=== PATIENT | female | born 1935 | race Caucasian/White ===

== ENCOUNTER 2017-10-28 17:07 | Outpatient (REF) | payer OTHER, SELFPAY ==
[2017-10-28 20:08] LABS: HCT 39.7 % (36.0-46.0); HGB 13.2 g/dL (12.0-15.5); Mean Corp. HGB Concentration 33.2 g/dL (32.0-36.0); Mean Corpuscular Hemoglobin 30.2 pg (27.0-33.0); Mean Corpuscular Volume 90.8 fL (80-95); Platelet Count 206 x1000/uL (130-400); RBC 4.37 m/cumm (4.00-5.20); RBC Distribution Width 14.1 % (11.7-14.6)
[2017-10-28 20:21] LABS: ALT 22 U/L (12-78); AST 15 U/L (15-37); Alkaline Phosphatase 60 U/L (46-116); Anion Gap 7.9 mmol/L (3-11); BUN 10 mg/dL (7-18); CO2 32.1 mmol/L (21.0-32.0); CREATININE 0.95 mg/dL (0.55-1.02); Calcium 9.1 mg/dL (8.5-10.1); Chloride 103 mmol/L (98-107); Estimated GFR 56.32 (mL/min/1.73m2); Glucose 104 mg/dL (70-100); Potassium 3.7 mmol/L (3.5-5.1); Sodium 143 mmol/L (136-145); TSH 1.47 uIU/mL (0.358-3.74); Total Protein 7.2 g/dL (6.4-8.2)
[2017-10-28 20:54] LABS: Bilirubin, Total 1.3 mg/dL (0.2-1.0)
== END 2017-10-28 17:08 ==
LOC: NCHCN 17:07
PROVIDERS: PCP Internal Medicine; Visit Provider Internal Medicine
DX: F41.9 Anxiety disorder, unspecified (principal); G56.01 Carpal tunnel syndrome, right upper limb
CPT/HCPCS: 80053; 85027; 84443

== ENCOUNTER 2018-02-13 10:35 | Outpatient (CLI) | payer OTHER, SELFPAY ==
--- NOTE | 2018-02-13 15:29 | DI.RAD_ITS ---
SYMPTOMS/DIAGNOSIS: PNEUMONIA, J18.9 PA AND LATERAL CHEST: No previous chest films available for comparison. There are multiple vascular clips in the right hilum with volume loss on the right, question prior lobectomy. Please correlate clinically. The heart is not enlarged and the lungs are grossly clear. No pleural effusion seen. CONCLUSION: No evidence of acute disease.
== END 2018-02-13 10:55 ==
PROVIDERS: PCP Internal Medicine; Visit Provider Nurse Practitioner Family
DX: J18.9 Pneumonia, unspecified organism (principal)
CPT/HCPCS: 71046

== ENCOUNTER 2018-08-10 19:27 | Outpatient (REF) | payer OTHER, SELFPAY ==
[2018-08-10 19:09] LABS: HCT 39.3 % (36.0-46.0); HGB 12.9 g/dL (12.0-15.5); Mean Corp. HGB Concentration 32.8 g/dL (32.0-36.0); Mean Corpuscular Hemoglobin 29.5 pg (27.0-33.0); Mean Corpuscular Volume 89.7 fL (80-95); Mean Platelet Volume 11.7 fL (8.0-11.0); Platelet Count 216 x1000/uL (130-400); RBC 4.38 m/cumm (4.00-5.20); RBC Distribution Width 14.9 % (11.7-14.6); White Blood Cell Count 5.12 k/cumm (4.4-10.8)
[2018-08-10 19:46] LABS: ALT 20 U/L (12-78); BUN 14 mg/dL (7-18); Calcium 9.6 mg/dL (8.5-10.1); Chloride 102 mmol/L (98-107); Estimated GFR 59.94 (mL/min/1.73m2); Glucose 97 mg/dL (70-100); Potassium 3.7 mmol/L (3.5-5.1); Sodium 141 mmol/L (136-145); TSH 1.73 uIU/mL (0.358-3.74)
[2018-08-10 20:01] LABS: LDL CHOLESTEROL 95 mg/dL (<100)
== END 2018-08-10 19:47 ==
LOC: NCHCN 19:27
PROVIDERS: PCP Internal Medicine; Visit Provider Internal Medicine
DX: R05 Cough (principal); I10 Essential (primary) hypertension; G30.9 Alzheimer's disease, unspecified
CPT/HCPCS: 80048; 83721; 85027; 84443; 84460

== ENCOUNTER 2019-08-13 15:35 | Outpatient (REF) | payer OTHER, SELFPAY ==
[2019-08-13 19:07] LABS: Abs Immature Grans 0.01 k/cumm (0.0-0.09); Absolute Basophil Count 0.05 k/cumm (0.0-0.2); Absolute Eosinophil Count 0.11 k/cumm (0.0-0.7); Absolute Lymphocyte Count 1.82 k/cumm (1.2-3.4); Absolute Monocyte Count 0.68 k/cumm (0.11-0.7); Basophils % 0.8; Eosinophils % 1.7; HCT 41.3 % (36.0-46.0); HGB 13.4 g/dL (12.0-15.5); Immature Grans % 0.2 %; Lymphocytes % 28.1; Mean Corp. HGB Concentration 32.4 g/dL (32.0-36.0); Mean Corpuscular Volume 89.4 fL (80-95); Mean Platelet Volume 11.8 fL (8.0-11.0); Monocytes % 10.5; Neutrophils % 58.7; Platelet Count 236 x1000/uL (130-400); RBC 4.62 m/cumm (4.00-5.20); RBC Distribution Width 14.3 % (11.7-14.6); White Blood Cell Count 6.47 k/cumm (4.4-10.8)
[2019-08-13 19:39] LABS: Anion Gap 5.7 mmol/L (3-11); BUN 15 mg/dL (7-18); CO2 33.3 mmol/L (21.0-32.0); CREATININE 0.96 mg/dL (0.55-1.02); Calcium 9.3 mg/dL (8.5-10.1); Chloride 102 mmol/L (98-107); Glucose 101 mg/dL (74-106); Potassium 3.6 mmol/L (3.5-5.1); Sodium 141 mmol/L (136-145); TSH 1.54 uIU/mL (0.36-3.74)
== END 2019-08-13 15:55 ==
LOC: NCHCN 15:35
PROVIDERS: PCP Internal Medicine; Visit Provider Internal Medicine
DX: R53.83 Other fatigue (principal); I10 Essential (primary) hypertension; F41.9 Anxiety disorder, unspecified; R63.4 Abnormal weight loss
CPT/HCPCS: 80048; 84443; 85025

== ENCOUNTER 2019-12-05 16:47 | Outpatient (REF) | payer OTHER, SELFPAY ==
[2019-12-05 23:11] LABS: Folate 16.6 ng/mL (8.6-20.0); Vitamin B12 346 pg/mL (193-986)
[2019-12-06 16:21] LABS: CREATININE 0.93 mg/dL (0.55-1.02); Estimated GFR 57.44 (mL/min/1.73m2)
[2019-12-10 10:10] LABS: Methylmalonic Acid 0.33 nmol/mL (<=0.40)
== END 2019-12-05 17:07 ==
LOC: NCHCN 16:47
PROVIDERS: PCP Internal Medicine; Visit Provider Internal Medicine
DX: G30.9 Alzheimer's disease, unspecified (principal); C34.11 Malignant neoplasm of upper lobe, right bronchus or lung; R05 Cough; H81.10 Benign paroxysmal vertigo, unspecified ear; Z51.81 Encounter for therapeutic drug level monitoring
CPT/HCPCS: 80186; 82565; 82607; 82746

== ENCOUNTER 2020-12-31 14:41 | Outpatient (REF) | payer OTHER, SELFPAY ==
[2020-12-31 21:32] LABS: HCT 37.1 % (36.0-46.0); HGB 11.9 g/dL (11.2-15.7); MCHC 32.1 % (32.0-36.0); MCV 90.3 fL (80-95); MPV 12.2 fL (8.0-11.0); Platelet Count 200 10^3/uL (130-400); RBC 4.11 10^6/uL (3.93-5.22); RDW 13.9 % (11.7-14.6); RDW-SD 45.8 fL; WBC 6.48 10^3/uL (4.4-10.8)
[2021-01-01 06:53] LABS: ALT 16 U/L (14-59); AST 18 U/L (15-37); Albumin 3.8 g/dL (3.4-5.0); Alkaline Phosphatase 53 U/L (46-116); Anion Gap 8.2 mmol/L (3-11); BUN 20 mg/dL (7-18); Bilirubin, Total 1.1 mg/dL (0.2-1.0); CO2 29.8 mmol/L (21.0-32.0); CREATININE 0.9 mg/dL (0.55-1.02); Calcium 9.6 mg/dL (8.5-10.1); Chloride 104 mmol/L (98-107); Estimated GFR 59.51 (mL/min/1.73m2); Glucose 89 mg/dL (74-106); Potassium 4.1 mmol/L (3.5-5.1); Sodium 142 mmol/L (136-145); TSH 1.42 uIU/mL (0.36-3.74)
== END 2020-12-31 14:42 | disposition home or self-care (01) ==
LOC: NCHCN 14:41
PROVIDERS: PCP Internal Medicine; Visit Provider Internal Medicine
DX: R63.4 Abnormal weight loss (principal); I10 Essential (primary) hypertension; M85.80 Other specified disorders of bone density and structure, unspecified site
CPT/HCPCS: 80053; 85027; 84443

== ENCOUNTER 2022-01-12 15:37 | Outpatient (REF) | payer OTHER, SELFPAY ==
[2022-01-12 20:03] LABS: Abs Immature Grans 0.02 10^3/uL (0.0-0.06); Absolute Basophil Count 0.06 10^3/uL (0.0-0.2); Absolute Eosinophil Count 0.14 10^3/uL (0.0-0.7); Absolute Lymphocyte Count 1.21 10^3/uL (1.2-3.4); Basophils % 0.9; Eosinophils % 2.2; HCT 38.8 % (36.0-46.0); HGB 12.8 g/dL (11.2-15.7); Immature Grans % 0.3; Lymphocytes % 19.1; MCH 29.2 pg (27.0-33.0); MCV 89 fL (80-95); MPV 12.2 fL (8.0-11.0); Monocytes % 9.5; Platelet Count 212 10^3/uL (130-400); RBC 4.38 10^6/uL (3.93-5.22); RDW-SD 45.3 fL; WBC 6.33 10^3/uL (4.4-10.8)
[2022-01-12 20:20] LABS: ALT 15 U/L (14-59); AST 18 U/L (15-37); Albumin 3.5 g/dL (3.4-5.0); Alkaline Phosphatase 57 U/L (46-116); Anion Gap 4.6 mmol/L (3-11); BUN 14 mg/dL (7-18); Bilirubin, Total 1.1 mg/dL (0.2-1.0); CO2 33.4 mmol/L (21.0-32.0); CREATININE 0.9 mg/dL (0.55-1.02); Calcium 9.8 mg/dL (8.5-10.1); Chloride 102 mmol/L (98-107); Estimated GFR 62.26 (mL/min/1.73m2); Glucose 88 mg/dL (74-106); Potassium 4.3 mmol/L (3.5-5.1); Sodium 140 mmol/L (136-145); Total Protein 7.5 g/dL (6.4-8.2)
== END 2022-01-12 15:38 | disposition home or self-care (01) ==
LOC: NCHCN 15:37
PROVIDERS: PCP Internal Medicine; Visit Provider Physician Assistant
DX: I10 Essential (primary) hypertension (principal); E78.5 Hyperlipidemia, unspecified
CPT/HCPCS: 80053; 85025

== ENCOUNTER 2024-02-08 17:25 | Outpatient (REF) | payer MEDICARE, SELFPAY ==
--- OUTSIDE RECORDS SUMMARY | 2024-02-08 17:26 | XMS_ITS | Encounter Summary ---
Author Organization [facility] Address [address] [place] [address] Care Team Providers Care Data Recovery Planner Name Role Phone Rivera Spain MD Primary Care Provider Encounter Details Date Type Department Care Team (Late st Contact Info) Description 12/16/[address] [facility] [phone] Dayna Ramirez MD [address] [place] [phone] Social History Tobacco Use Types Packs/Day Years Used Date Smoking Tobacco: Former Comments:quit 1974 Alcohol Use Standard Drinks/Week Comments No 0 (1 standard drink = 0.6 oz pur e alcohol) Comments Unknown Sex and Gender Information Value Date Recorded Sex Assigned at Not on file Legal Sex Female 18:46 EST Gender Identity Not on file Sexual Orientation Not on file documented as of this encounter Plan of Treatment Not on file documented as of this encounter Procedures Procedure Name Priority Date/Time Associated Diagnosis Comments CT GUIDE BIOPSY/ASPIR/INJECT 12/16/2008 12:01 EDT documented in this encounter Results * CT GUIDE BIOPSY/ASPIR/INJECT (12/16/2008 12:01 EDT) Anatomical Region Laterality Modality Other 12/16/2008 12:0 1 EDT 12/16/2008 14:22 EDT Narrative 12/16/2008 14:[address] GUIDE BIOPSY/ASPIR/INJECT ??Dec 16, 2008 12:01:00 PM Chest PA 12/16/2008 at 1:58 p.m. Signs and Symptoms/Comments: ??73 year old female with h/o 10 pack per year tobacco use, asbestos fiber exposure, now with right upper lobe lung mass, please biopsy. Technique: After a detailed explanation of the risks and benefits of the procedure as well as consideration of alternative diagnostic methods including no further diagnostic procedures, informed consent was obtained from the patient. A history and physical examination were performed for the purposes of administering conscious sedation, which was given during the procedure. The patient's blood pressure, respiratory rate, pulse, and oxygen saturations were continuously monitored during the procedure. With the patient in the supine position, a series of scans were obtained through the upper chest confirming the presence of a 2.5 cm in diameter nodule ??in the right upper lobe. ??An appropriate needle entry site was chosen by use of the CT gantry laser light. ??The skin was then prepared and draped in a sterile manner. After lidocaine had been administered both superficially and to the pleural surface, and a small skin incision had been made, a 19-gauge, 10 cm long ultrathin-walled needle was advanced through the anterior chest wall and placed with its tip within the superior aspect of the right upper lobe nodule. ??Multiple aspirates were then obtained with 22-gauge, 15 cm long Chiba needles and given to the cytopathologist for evaluation. ??A repeat scan obtained immediately after the biopsy showed that there was localized hemorrhage without obvious hemothorax or hemoptysis clinically. The patient was then placed in the right decubitus position and transferred to postprocedure recovery for monitoring. Impression: Successful CT-guided aspiration biopsy of a 2.5 cm in diameter nodule in the right upper lobe. Minimal perilesional hemorrhage cannot locate the procedure without clinical hemoptysis. Chest radiograph obtained 2 hours post procedure shows very small right apical pneumothorax. Localized hemorrhage is seen the site of biopsy. No other abnormalities are noted. Procedure Note 12/16/2008 CT GUIDE BIOPSY/ASPIR/INJECT Dec 16, 2008 12:01:00 PM Chest PA 12/16/2008 at 1:58 p.m. 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 Technique: After a detailed explanation of the risks and benefits of the procedure as well as consideration of alternative diagnostic methods including no further diagnostic procedures, informed consent was obtained from the patient. A history and physical examination were performed for the purposes of administering conscious sedation, which was given during the procedure. The patient's blood pressure, respiratory rate, pulse, and oxygen saturations were continuously monitored during the procedure. With the patient in the supine position, a series of scans were obtained through the upper chest confirming the presence of a 2.5 cm in diameter nodule in the right upper lobe. An appropriate needle entry site was chosen by use of the CT gantry laser light. The skin was then prepared and draped in a sterile manner. After lidocaine had been administered both superficially and to the pleural surface, and a small skin incision had been made, a 19-gauge, 10 cm long ultrathin-walled needle was advanced through the anterior chest wall and placed with its tip within the superior aspect of the right upper lobe nodule. Multiple aspirates were then obtained with 22-gauge, 15 cm long Chiba needles and given to the cytopathologist for evaluation. A repeat scan obtained immediately after the biopsy showed that there was localized hemorrhage without obvious hemothorax or hemoptysis clinically. The patient was then placed in the right decubitus position and transferred to postprocedure recovery for monitoring. Impression: Successful CT-guided aspiration biopsy of a 2.5 cm in diameter nodule in the right upper lobe. Minimal perilesional hemorrhage cannot locate the procedure without clinical hemoptysis. Chest radiograph obtained 2 hours post procedure shows very small right apical pneumothorax. Localized hemorrhage is seen the site of biopsy. No other abnormalities are noted. us Dayna Ramirez MD [facility] ORDERABLES Final R esult documented in this encounter Visit Diagnoses Not on filedocumented in this encounter Care Teams Data Recovery Planner Relationship Specialty Start Date End Date Rivera Spain MD [address] [place] [id number] PCP - General 12/12/08 documented as of this encounter
--- OUTSIDE RECORDS SUMMARY | 2024-02-08 17:26 | XMS_ITS | Encounter Summary ---
Author Organization [facility] Address [address] [place] [address] Care Team Providers Care Machine Builder Name Role Phone Rivera Spain MD Primary Care Provider [phone] Encounter Details Date Type Department Care Team (Late st Contact Info) Description 01/21/2021 Lab Requisition [facility] Pathology & Laboratory Medicine - [address] [address] Deloris Schwarz, ELBA [address] [place] [address] [place], [place] [id number] Neoplasm of uncertain behavior of skin Social History Tobacco Use Types Packs/Day Years [...] Procedure Name Priority Date/Time Associated Diagnosis Comments SURGICAL PATHOLOGY Today 01/21/2021 11 :58 EDT Neoplasm of uncertain behavior of skin documented in this encounter Results * SURGICAL PATHOLOGY (01/21/2021 11:58 EDT) Note to Patient The following pathology results have been interpreted by your pathologist and may be available to you before your health provider has had the opportunity to review them. Please allow time for your provider to receive these results and explore management options, if applicable. 01/22/2021 16:22 [facility] Final Diagnosis A. Skin of nasal sidewall, right, shave biopsy: - Squamous cell carcinoma, well differentiated, invasive. - Squamous cell carcinoma present at deep tissue edge. 01/22/2021 16:22 [facility] Attestation By the signature below, the attending physician certifies that they have 1) personally conducted a gross and/or microscopic examination of the described specimen(s), and/or personally interpreted the results of laboratory testing of the described specimen(s), and 2) personally rendered or confirmed the above diagnosis. 01/22/2021 16:22 [facility] at 1621 Microscopic Description The stratum corneum is thickened by orthohyperkeratosis and parakeratosis. Emanating from the epidermis and extending into the dermis is a proliferation of atypical squamous epithelium. The proliferation consists of variably sized, irregular islands associated with dermal desmoplasia. The cells have an increased nuclear-cytoplasmic ratio and nuclear pleomorphism. Intercellular bridge and keratin marek formation are evident. 01/22/2021 16:22 [facility] Clinical History 7 mm pink crusted papule with multiple telangiectasias; DDX: Basal cell carcinoma vs other; clinical diagnosis code: D48.5 01/22/2021 16:22 [facility] Gross Description A. Received in formalin labelled with proper patient identification (initials D, B) and right nasal sidewall is a shave biopsy of a pearly white, keratotic papule (0.7 x 0.5 x 0.2 cm). The specimen is inked, bisected and submitted in A1. ELBA BEAR(ASCP) 01/22/2021 7:40 01/22/2021 16:22 [facility] Performing Lab [facility] 01/22/2021 16:22 [facility] Scanned Images 01/22/2021 16:22 [facility] Tissue TISSUE SPECIMEN FROM SKIN / Unknown 01/21/2021 11:58 EDT 01/21/2021 23:32 EDT us Deloris [facility] ORDERABLES Final Re sult [facility] [address] [place] [address] documented in this encounter Visit Diagnoses Diagnosis Neoplasm of uncertain behavior of skin documented in this encounter Care Teams Machine Builder Relationship Specialty Start Date End Date Rivera Spain MD [address] [place] [id number] PCP - General 12/12/08 documented as of this encounter
--- OUTSIDE RECORDS SUMMARY | 2024-02-08 17:26 | XMS_ITS | Encounter Summary ---
Author Organization [facility] Address [address] [place] [address] Care Team Providers Care Paper Cone Machine Tender Name Role Phone Rivera Spain MD Primary Care Provider [phone] Encounter Details Date Type Department Care Team (Latest Contact Info) Description 12/23/2008 8:22 EDT - 12/23/2008 18:34 EDT Hospital Encounter [facility] [address] [place] [address] Dayna Ramirez MD [address] [place] [phone] Discharge Disposition: Home or Self Care Social History Tobacco Use Types Packs/Day Years [...] on file documented as of this encounter Last Filed Vital Signs Vital Sign Reading Time Taken Comments Blood Pressure 149/63 12/23/2008 1828 EDT Pulse 74 12/23/2008 1828 EDT Temperature 35.8 ??C (96.4 ??F) 12/23/2008 1703 EDT Respiratory Rate 16 12/23/2008 1610 EDT Oxygen Saturation 97% 12/23/2008 1828 EDT Inhaled Oxygen Concentration - - Weight 74.4 kg (164 lb) 12/20/2008 1530 EDT Height 170.2 cm (5' 7) 12/20/2008 1530 EDT Body Mass Index 25.69 12/20/2008 1530 EDT documented in this encounter Medications at Time of Discharge ATORVASTATIN CALCIUM (LIPITOR ORAL) Take 20 mg by mouth daily. bisoprolol-hydroc hlorothiazide (ZIAC) 10-6.25 mg per tablet Take 1 Tab by mouth. diazepam (VALIUM) 2 mg tablet Take 2 mg by mouth as needed for Anxiety. FLUTICASONE/SALME TEROL (ADVAIR DISKUS INHL) Inhale 2 Puffs as directed 2 times daily. documented as of this encounter Discharge Disposition Disposition Code Departure Means Destination Home or Self Care documented in this encounter Progress Notes * Lauren Cortez RN - 12/23/[address] Madsen here to assess pt. Ok pt for discharge, gave son Markos phone # to reach for emergency.-djp * Lauren Cortez RN - 12/23/2008 1759 EDT 1750 Radiology here to perform U/S.-djp * Lauren Cortez RN - 12/23/2008 1756 EDT 1725 Pt sitting up drinking coffee, pain assessment pt c/o chest pain that starts on right midline of right breast. After talking it through, pt is unsure if pain is from previous position during renal bx. Pt was lying on rolled up blanket placed at midline chest. -djp [address] Madsen to report chest pain, Dr Madsen to come see pt in PPR.-djp * Lauren Cortez RN - 12/23/2008 1730 EDT 1717 Pt drinking coffee, refused food. Verbally reviewed discharge instructions with pt and son, hard copy signed and given to pt.-djp * Seda Gama - 12/23/2008 1548 EDT Pt. From CVU With consents in place. Proper pt. Identification made. Labs, allergies, hx. And medications reviewed. Positioned on CT table and act english tutor scan done.Pt. prepped for procedure. Conscious sedation with Versed and Fentanyl given throughout procedure and VS monitored continually. Due to difficulty getting into renal lesion safely, procedure aborted. Pt. To [facility] for recovery. * Shari Macias RN - 12/23/2008 1331 EDT 1300 Pt arrived to CVU with a Peripheral IV in wrist and was placed by PET scan this am. Unable to document on this IV as is not in LDA documented in this encounter Procedure Notes * Jordan Madsen MD - 12/23/2008 1613 EDT Radiologist: Cale Procedure: Attempted CT guided left kidney tumor biopsy Diagnosis/Reason: Left kidney tumor Anesthesia: Moderate sedation Approach: Left flank Medications: IV versed and fentanyl, and local lidocaine Contrast: none Specimens: none Cultures: none Preliminary Findings: CT guided biopsy aborted, since lung and ribs prevented successful biopsy of tumor off of superior pole of left kidney, in the prone position. This occurred despite extreme superior angulation of the needle, using an inferior approach. In the setting of a moderate right pneumothorax, I elected to abort the procedure, since she is at high risk of sustaining a left pneumothorax with this procedure. Once the right pneumothorax resolves, we can reconsider performing a biopsy of the superior pole left kidney tumor, via a transthoracic approach. Complications: None EBL: None Recommendations: Per clinical team. documented in this encounter OR Notes * Anesthesia Procedure Notes - Inpatient, Physician - 12/26/2008 1535 EDT documented in this encounter Miscellaneous Notes * Scanned Note-Null - Inpatient, Physician - 12/26/2008 1535 EDT * Scanned Note-Null - Inpatient, Physician - 12/26/2008 1535 EDT documented in this encounter Plan of Treatment Not on file documented as of this encounter Visit Diagnoses Not on filedocumented in this encounter Administered Medications Inactive Administered Medications - up to 3 most recent administrations Medication Order MAR Action Action Date Dose Rate Site fentanyl citrate (PF) 50 mcg/mL injection 25-250 mcg 25-250 mcg, intravenous, ONCE PRN, 1 dose, Starting on Tue12/23/08 at 1451, Until Tue12/23/08 at 1620, Other, radiology, Routine, Intraprocedure Given 12/23/2008 16:20 EDT 50 mcg midazolam (VERSED) injection 0.5-10 mg 0.5-10 mg, intravenous, ONCE PRN, 1 dose, Starting on Tue12/23/08 at 1451, Until Tue12/23/08 at 1621, Sedation, Routine, Intraprocedure Given 12/23/2008 16:21 EDT 1.5 mg sodium chloride 0.9 % (NS) infusion 50 mL/hr, intravenous, CONTINUOUS, Starting on Tue12/23/08 at 1330, Until Tue12/23/08 at 2039, Routine, Preprocedure New Bag 12/23/2008 13:30 EDT 50 mL/hr 50 mL/hr documented in this encounter Active and Recently Administered Medications Times are shown in EDT. Continuous Medication Order 12/21/2008 12/22/2008 12/23/2008 sodium chloride 0.9 % (NS) infusion (CANCELED) 50 mL/hr, intravenous, CONTINUOUS, Starting on Tue12/23/08 at 1330, Until Tue12/23/08 at 2039, Routine, Preprocedure 1330 (New Bag - Prov ider: Shari Macias RN) PRN Medication Order 12/21/2008 12/22/2008 12/23/2008 fentanyl citrate (PF) 50 mcg/mL injection 25-250 mcg (COMPLETED) 25-250 mcg, intravenous, ONCE PRN, 1 dose, Starting on Tue12/23/08 at 1451, Until Tue12/23/08 at 1620, Other, radiology, Routine, Intraprocedure 1620 (Given - Provid er: Seda Gama) midazolam (VERSED) injection 0.5-10 mg (COMPLETED) 0.5-10 mg, intravenous, ONCE PRN, 1 dose, Starting on Tue12/23/08 at 1451, Until Tue12/23/08 at 1621, Sedation, Routine, Intraprocedure 1621 (Given - Provid er: Seda Gama) documented in this encounter Orders Diet Count Last Ordered Date First Orde red Date DIET NPO TIME SPECIFIED 12/23/2008 Nursing Count Last Ordered Date First Orde red Date NURSING COMMUNICATION 12/23/2008 Admission Count Last Ordered Date First Orde red Date NOTIFY PPS OF DISCHARGE COMPLETE 12/24/19 documented in this encounter Care Teams Paper Cone Machine Tender Relationship Specialty Start Date End Date Rivera Spain MD [address] [place] [address] PCP - General 12/12/08 documented as of this encounter
--- OUTSIDE RECORDS SUMMARY | 2024-02-08 17:26 | XMS_ITS | Encounter Summary ---
Author Organization [facility] Address [address] [place] [address] Care Team Providers Care Machine Clothing Worker Name Role Phone Rivera Spain MD Primary Care Provider [phone] Encounter Details Date Type Department Care Team (Late st Contact Info) Description 02/16/[address] [facility] Pathology & Laboratory Medicine - [address] [address] Deloris Schwarz, ELBA [address] [place] [address] [place], [place] [id number] Neoplasm of uncertain behavior of skin Social [...] Date/Time Associated Diagnosis Comments SURGICAL PATHOLOGY Today 02/15/2022 14 :22 EST Neoplasm of uncertain behavior of skin documented in this encounter Results * SURGICAL PATHOLOGY (02/15/2022 14:22 EST) Note to Patient The following pathology results have been interpreted by your pathologist and may be available to you before your health provider has had the opportunity to review them. Please allow time for your provider to receive these results and explore management options, if applicable. 02/16/2022 15:50 [facility] Final Diagnosis A. SKIN OF NASAL DORSUM, SHAVE BIOPSY: - Squamous cell carcinoma in situ, involving the biopsy base. 02/16/2022 15:50 [facility] Attestation By the signature below, the attending physician certifies that they have 1) personally conducted a gross and/or microscopic examination of the described specimen(s), and/or personally interpreted the results of laboratory testing of the described specimen(s), and 2) personally rendered or confirmed the above diagnosis. 02/16/2022 15:50 [facility] at 1550 Clinical History Erythematous tender papule with hyperkeratotic scale, DDx: squamous cell carcinoma versus HAK; clinical diagnosis code: D48.5 02/16/2022 15:50 [facility] Gross Description A. Received in formalin labelled with proper patient identification (initials D, B) and nasal dorsum is a shave biopsy of an irregular perales-white focally de la o-perales keratotic nodule (1.1 x 0.8 x 0.1 cm). The specimen is received with a moderate amount of purple marking ink on the cutaneous surface. The margin is subsequently inked blue, the specimen is trisected and entirely submitted in A1. JER AGUILAR 02/16/2022 7:53 02/16/2022 15:50 [facility] Performing Lab [facility] 02/16/2022 15:50 [facility] Scanned Images 02/16/2022 15:50 [facility] Tissue TISSUE SPECIMEN FROM SKIN / Unknown 02/15/2022 14:22 EST 02/16/2022 7:09 EST us Deloris [facility]OL[facility] PATHOLOGY ORDERABLES Final Re sult [facility] [address] [place] [address] documented in this encounter Visit Diagnoses Diagnosis Neoplasm of uncertain behavior of skin documented in this encounter Care Teams Machine Clothing Worker Relationship Specialty Start Date End Date Rivera Spain MD [address] [place] [address] PCP - General 12/12/08 documented as of this encounter
--- OUTSIDE RECORDS SUMMARY | 2024-02-08 17:26 | XMS_ITS | Encounter Summary ---
Author Organization [facility] Address [address] [place] [address] Care Team Providers Care Insert Molding Operator Name Role Phone Rivera Spain MD Primary Care Provider Encounter Details Date Type Department Care Team (Late st Contact Info) Description 12/23/2008 Orders Only [facility] [phone] Renata Villafana MD [address], [place] [id number] Social History Tobacco Use Types Packs/Day Years [...] Date/Time Associated Diagnosis Comments CT GUIDE BIOPSY/ASPIR/INJECT 12/23/2008 16:[address] EYE TO THIGH 12/23/2008 12:02 EDT documented in this encounter Results * CT GUIDE BIOPSY/ASPIR/INJECT (12/23/2008 16:24 EDT) Anatomical Region Laterality Modality Other 12/23/2008 16:2 4 EDT 12/25/2008 17:34 EDT Narrative 12/25/2008 17:[address]-guided left kidney tumor a biopsy 12/23/2008 at 1520 hours History: 73-year-old woman with newly diagnosed lung cancer. ?? Recently discovered asymptomatic right pneumothorax, post right lung biopsy performed last week. ??Please perform biopsy of a separate 9 x 16 mm in size tumor off the upper pole of the left kidney. Description: Intravenous midazolam and fentanyl were administered for moderate sedation during continuous monitoring of the blood pressure, pulse rate, and oxygen saturation. With the patient in the prone position, and utilizing sterile technique, local lidocaine anesthesia, and CT guidance, a 19-gauge guiding needle was advanced into a position adjacent to the small tumor located off the upper pole of the left kidney. ??A left flank approach was used, with an inferior skin entry site and an extreme superior angulation of the needle, in an attempt to avoid transgressing the left pleura. ?? However, a combination of hyper aeration of the posterior aspect of the left lung and a fortuitous positioning of the ribs precluded a successful biopsy of the left kidney tumor. ??Therefore, the procedure was aborted. ??Because of the known right-sided pneumothorax, we wanted to avoid causing a left-sided pneumothorax during this procedure. ??If clinically indicated, a repeat CT guided biopsy of the left kidney tumor could be performed once the right-sided pneumothorax has resolved, by creating an iatrogenic left pneumothorax prior to placing the biopsy needle into the left kidney tumor, utilizing a left transpleural approach. The patient tolerated the procedure well. ??No complication occurred. ?? The estimated blood loss during this procedure was 0. These findings were communicated to Dr. Villafana on 12/23/2008. Impression: Unsuccessful CT guided left kidney tumor biopsy. Procedure Note 12/25/[address]-guided left kidney tumor a biopsy 12/23/2008 at 1520 hours History: 73-year-old woman with newly diagnosed lung cancer. Recently discovered asymptomatic right pneumothorax, post right lung biopsy performed last week. Please perform biopsy of a separate 9 x 16 mm in size tumor off the upper pole of the left kidney. Description: Intravenous midazolam and fentanyl were administered for moderate sedation during continuous monitoring of the blood pressure, pulse rate, and oxygen saturation. With the patient in the prone position, and utilizing sterile technique, local lidocaine anesthesia, and CT guidance, a 19-gauge guiding needle was advanced into a position adjacent to the small tumor located off the upper pole of the left kidney. A left flank approach was used, with an inferior skin entry site and an extreme superior angulation of the needle, in an attempt to avoid transgressing the left pleura. However, a combination of hyper aeration of the posterior aspect of the left lung and a fortuitous positioning of the ribs precluded a successful biopsy of the left kidney tumor. Therefore, the procedure was aborted. Because of the known right-sided pneumothorax, we wanted to avoid causing a left-sided pneumothorax during this procedure. If clinically indicated, a repeat CT guided biopsy of the left kidney tumor could be performed once the right-sided pneumothorax has resolved, by creating an iatrogenic left pneumothorax prior to placing the biopsy needle into the left kidney tumor, utilizing a left transpleural approach. The patient tolerated the procedure well. No complication occurred. The estimated blood loss during this procedure was 0. These findings were communicated to Dr. Villafana on 12/23/2008. Impression: Unsuccessful CT guided left kidney tumor biopsy. us Dayna Ramirez MD IMG CT ORDERABLES Final R esult * NM PET CT EYE TO THIGH (12/23/2008 12:02 EDT) Anatomical Region Laterality Modality Other 12/23/2008 12:0 2 EDT 12/23/2008 17:08 EDT Narrative 12/23/2008 17:08 EDT F-18 FDG PET/CT of the BODY Signs \T\ Symptoms: ??Lung nodule. Technique: Approximately one hour following the IV injection of 16.8 mCi of [id number], 2D PET imaging was obtained from the head to the upper thighs with CT attenuation correction using a dedicated closed ring PET system. ??The blood glucose level prior to injection was 97 mg/dl. ??The injection site was in the right wrist. Findings: A moderate-sized pneumothorax is present in the right hemithorax. There is mildly increased FDG activity in the right upper lobe of lung at the site of prior biopsy with associated groundglass and airspace opacity as seen on the prior CT. There is also increased activity along the pleural surface posteriorly which corresponds with a right pleural effusion. The right middle lobe is collapsed. There is an abnormal focus of activity overlying the anteroinferior right lobe of the liver in Couinaud segment 5. Misregistration artifact and breathing motion makes the exact location of this activity difficult to identify with confidence. The prior CT scan shows no corresponding mass in this area. It is possible that this focus of activity actually resides outside of the liver and projects over the right hepatic lobe secondary to misregistration artifact. Ultrasound of the right upper quadrant has been ordered to further evaluate for hepatic abnormality in this area. A 1.7 x 1.3 cm nodule is noted in the superior aspect of the left kidney. Misregistration artifact precludes definitive evaluation of the metabolic activity on PET, however there is probably least mild activity associated with the lesion. Biopsy of the left renal mass is being performed today. Calcified atherosclerotic plaques are present in the descending aorta and branch vessels. There are degenerative changes along the lower lumbar spine. Impression: 1. Right-sided pneumothorax. 2. Abnormal activity overlying the anteroinferior right lobe of liver and could reflect extrahepatic activity with misregistration artifact. If the activity is truly within the liver, the primary consideration is for a metastatic disease. An ultrasound of the liver will be performed for clarification, however if negative MR would be most definitive test. 3. Exophytic mass of the pole of the left kidney which exhibits questionable FDG activity. Biopsy is being performed today. 4. Mildly increased uptake corresponding to the biopsy right upper lobe mass. 5. Small right pleural effusion with associated increased FDG activity. I have personally reviewed the images and the above interpretation and agree with the findings. Procedure Note Rivera Green / Rivera Green / Rivera Green - 12/23/2008 F-18 FDG PET/CT of the BODY Signs \T\ Symptoms: Lung nodule. Technique: Approximately one hour following the IV injection of 16.8 mCi of [id number], 2D PET imaging was obtained from the head to the upper thighs with CT attenuation correction using a dedicated closed ring PET system. The blood glucose level prior to injection was 97 mg/dl. The injection site was in the right wrist. Findings: A moderate-sized pneumothorax is present in the right hemithorax. There is mildly increased FDG activity in the right upper lobe of lung at the site of prior biopsy with associated groundglass and airspace opacity as seen on the prior CT. There is also increased activity along the pleural surface posteriorly which corresponds with a right pleural effusion. The right middle lobe is collapsed. There is an abnormal focus of activity overlying the anteroinferior right lobe of the liver in Couinaud segment 5. Misregistration artifact and breathing motion makes the exact location of this activity difficult to identify with confidence. The prior CT scan shows no corresponding mass in this area. It is possible that this focus of activity actually resides outside of the liver and projects over the right hepatic lobe secondary to misregistration artifact. Ultrasound of the right upper quadrant has been ordered to further evaluate for hepatic abnormality in this area. A 1.7 x 1.3 cm nodule is noted in the superior aspect of the left kidney. Misregistration artifact precludes definitive evaluation of the metabolic activity on PET, however there is probably least mild activity associated with the lesion. Biopsy of the left renal mass is being performed today. Calcified atherosclerotic plaques are present in the descending aorta and branch vessels. There are degenerative changes along the lower lumbar spine. Impression: 1. Right-sided pneumothorax. 2. Abnormal activity overlying the anteroinferior right lobe of liver and could reflect extrahepatic activity with misregistration artifact. If the activity is truly within the liver, the primary consideration is for a metastatic disease. An ultrasound of the liver will be performed for clarification, however if negative MR would be most definitive test. 3. Exophytic mass of the pole of the left kidney which exhibits questionable FDG activity. Biopsy is being performed today. 4. Mildly increased uptake corresponding to the biopsy right upper lobe mass. 5. Small right pleural effusion with associated increased FDG activity. I have personally reviewed the images and the above interpretation and agree with the findings. us Renata Villafana MD [facility] NM ORDERABLES Final Resu lt documented in this encounter Visit Diagnoses Not on filedocumented in this encounter Care Teams Insert Molding Operator Relationship Specialty Start Date End Date Rivera Spain MD [address] [place] [address] PCP - General 12/12/08 documented as of this encounter
--- OUTSIDE RECORDS SUMMARY | 2024-02-08 17:26 | XMS_ITS | Clinical Summary ---
Author Organization [facility] [place] [address] Care Team Providers Care Placer Miner Name Role Phone Rivera Spain MD Primary Care Provider Allergies Active Allergy Reactions Criticality Noted Date Comments Amoxicillin Trihydrate Medium CIS - Unknown Aspirin CIS - nose bleeds Grapefruit Other (See Comments) 12/16/2008 Does not take with chol med Medications Medication Sig Dispensed Refills Start Date End Date Status atorvastatin (LIPITOR) 20 mg tablet 10/06/2009 Active bisoprolol-hydrochlo rothiazide (ZIAC) 10-6.25 mg per tablet 10/06/2009 Active diaZEPam (VALIUM) 2 mg tablet 10/06/2009 Active loratadine (CLARITIN) 10 mg tablet 10/06/2009 Active clotrimazole (LOTRIMIN) 1 % cream Apply topically 2 times daily. Active albuterol (PROVENTIL HFA;VENTOLIN HFA) 90 mcg/Actuation inhaler Inhale 2 puffs into the lungs every 4 hours as needed. Use with spacer Active Fluticasone 50 mcg/Actuation DsDv Inhale into the lungs. Active amLODIPine (NORVASC) 2.5 mg Tablet 03/15/2019 Active azelastine (ASTELIN) 137 mcg (0.1 %) Aerosol, [place] INSTILL 2 SPRAYS INTO EACH NOSTRIL TWICE A DAY 01/10/2019 Active benzonatate (TESSALON) 100 mg Capsule 02/14/2019 Active rivastigmine (EXELON) 4.6 mg/24 hr Patch 24 hr 12/13/2018 Active fluorouracil (EFUDEX) 5 % Cream Apply twice daily to face for 10 days then return to clinic. 45 g 03/27/2019 Active triamcinolone (KENALOG) 0.1 % Cream Apply twice daily 30 minutes after each 5-FU application for 10 days, and then by itself bid until rash clears 30 g 1 03/27/2019 Active Active Problems Problem Noted Date Diagnosed Date Malignant neoplasm of bronchus and lung, unspeci fied site 06/24/2011 Other malignant neoplasm without specification o f site 06/24/2011 Immunizations Name Administration Dates Next Due Influenza Vaccine, Whole 01/13/2009 Social History Tobacco Use Types Packs/Day Years Used Date Smoking Tobacco: Never Smokeless Tobacco: Never Sex and Gender Information Value Date Recorded Sex Assigned at Not on file Gender Identity Not on file Sexual Orientation Not on file Last Filed Vital Signs Vital Sign Reading Time Taken Comments Blood Pressure 180/96 12/29/2010 11:35 AM EDT Pulse 70 12/29/2010 11:35 AM EDT Temperature - - Respiratory Rate 16 12/29/2010 11:35 AM EDT Oxygen Saturation 98% 12/29/2010 11:35 AM EDT Inhaled Oxygen Concentration - - Weight 73.5 kg (162 lb) 12/29/2010 11:35 AM EDT Height 167.6 cm (5' 6) 12/29/2010 11:35 AM EDT Body Mass Index 26.15 12/29/2010 11:35 AM EDT Plan of Treatment Health Maintenance Due Date Last Done Comments Tetanus/Diphtheria/Pertussis Vaccines (1 - Tdap) 09/21 Zoster vaccine (1 of 2) 09/21/1985 Advance Directive 09/21/1990 Bone Density Scan 09/21/2000 Pneumoccocal Vaccine: 65+ (1 of 1 - PCV) 09/21/2000 Covid-19 Vaccine (1 - season) 2023 Influenza (Flu) vaccine (1 o f 1 - Influenza standard series) 11/27/2023 01/13/2009 Care Teams Placer Miner Relationship Specialty Start Date End Date Rivera Spain MD [address] [place] [address] PCP - General 02/17/10
--- OUTSIDE RECORDS SUMMARY | 2024-02-08 17:26 | XMS_ITS | Encounter Summary ---
Author Organization [facility] Address [address] [place] [address] Care Team Providers Care Pebble Mill Operator Name Role Phone Rivera Spain MD Primary Care Provider Encounter Details Date Type Department Care Team (Latest Contact Info) Description 12/23/2008 8:21 EDT Hospital Encounter [facility] [address] [place] [address] Renata Villafana MD [address] [place] [id number] Discharge Disposition: Auto Discharge Social History Tobacco Use Types Packs/Day Years Used Date Smoking Tobacco: Former Comments:quit 1973 Alcohol Use Standard Drinks/Week Comments No 0 (1 standard drink = 0.6 oz pur e alcohol) Comments Unknown Sex and Gender Information Value Date Recorded Sex Assigned at Not on file Legal Sex Female 18:46 EST Gender Identity Not on file Sexual Orientation Not on file documented as of this encounter Medications at Time of Discharge [...] Discharge Disposition Disposition Code Departure Means Destination Auto Discharge Home documented in this encounter Plan of Treatment Not on file documented as of this encounter Procedures Procedure Name Priority Date/Time Associated Diagnosis Comments RAD US ABDOMEN ONE ORGAN/QUADRANT 12/23/2008 18:28 EDT documented in this encounter Results * RAD US ABDOMEN ONE ORGAN/QUADRANT (12/23/2008 18:28 EDT) Anatomical Region Laterality Modality Other 12/23/2008 18:2 8 EDT 12/24/2008 9:39 EDT Narrative 12/24/2008 9:39 EDT US ABD ONE ORG/QUAD ??Dec 23, 2008 06:28:00 PM Indication/Comments: Abnormal DCG activity in right hepatic lobe concerning for mets, no corresponding lesion on prior CT Comparison: None Findings: Sonographic evaluation or port was attained for workup of a hypermetabolic region noted in the liver on a CT from 6 hours prior. The liver measures 13.7 cm in maximal longitudinal span, and demonstrate no mass in the region of interest. The liver has a normal homogeneous echotexture and a smooth contour. The biliary tree is unremarkable and the common hepatic duct diameter does not exceed 3 mm. The gallbladder has normal wall thickness, demonstrates no cholelithiasis, pericholecystic fluid, or tenderness to sonographic probe palpation. The pancreatic head and body have homogeneous echotexture and smooth contour. No peripancreatic fluid or nodularity is noted. The tail of the pancreas is obscured by overlying bowel gas. The right kidney measures 10.5 centimeter in long axis length and demonstrates no calculi, cysts, mass or hydronephrosis renal echotexture is within normal limits. The proximal aorta and upper abdominal inferior vena cava are unremarkable. Incidental note is made of a small right pleural effusion Impression: 1. No evidence of right hepatic lobe mass suspected on PET/CT. As per the PET/CT report, MR should be considered for further evaluation. 2. Incidental note made of a small right pleural effusion I have personally reviewed the images and the above interpretation and agree with the findings. Procedure Note Favio Alaniz MD / Favio Alaniz MD / Favio Alaniz MD - 12/24/2008 US ABD ONE ORG/QUAD Dec 23, 2008 06:28:00 PM Indication/Comments: Abnormal DCG activity in right hepatic lobe concerning for mets, no corresponding lesion on prior CT Comparison: None Findings: Sonographic evaluation or port was attained for workup of a hypermetabolic region noted in the liver on a CT from 6 hours prior. The liver measures 13.7 cm in maximal longitudinal span, and demonstrate no mass in the region of interest. The liver has a normal homogeneous echotexture and a smooth contour. The biliary tree is unremarkable and the common hepatic duct diameter does not exceed 3 mm. The gallbladder has normal wall thickness, demonstrates no cholelithiasis, pericholecystic fluid, or tenderness to sonographic probe palpation. The pancreatic head and body have homogeneous echotexture and smooth contour. No peripancreatic fluid or nodularity is noted. The tail of the pancreas is obscured by overlying bowel gas. The right kidney measures 10.5 centimeter in long axis length and demonstrates no calculi, cysts, mass or hydronephrosis renal echotexture is within normal limits. The proximal aorta and upper abdominal inferior vena cava are unremarkable. Incidental note is made of a small right pleural effusion Impression: 1. No evidence of right hepatic lobe mass suspected on PET/CT. As per the PET/CT report, MR should be considered for further evaluation. 2. Incidental note made of a small right pleural effusion I have personally reviewed the images and the above interpretation and agree with the findings. us Bob Arias MD [facility] [place] US ORDERABLES Final Re sult documented in this encounter Visit Diagnoses Not on filedocumented in this encounter Care Teams Pebble Mill Operator Relationship Specialty Start Date End Date Rivera Spain MD [address] [place] [address] PCP - General 12/12/08 documented as of this encounter
--- OUTSIDE RECORDS SUMMARY | 2024-02-08 17:26 | XMS_ITS | Clinical Summary ---
Author Organization [facility] Address [address] [place] [address] Care Team Providers Care Clinical Resource Nurse Name Role Phone Rivera Spain MD Primary Care Provider [phone] Allergies Active Allergy Reactions Criticality Noted Date Comments Amoxicillin 12/13/2008 Aspirin 12/13/2008 nosebleeds Grapefruit Unknown Reaction 12/16/2008 Does not take with chol med Other - See Comments 12/13/2008 pollen Papaya Derivatives Other (See Comments) 009 States mouth swelled Medications bisoprolol-hydr ochlorothiazide (ZIAC) 10-6.25 mg per tablet Take 1 Tab by mouth. Active diazepam (VALIUM) 2 mg tablet Take 2 mg by mouth as needed for Anxiety. Active ATORVASTATIN CALCIUM (LIPITOR ORAL) Take 20 mg by mouth daily. Active FLUTICASONE/MARIE METEROL (ADVAIR DISKUS INHL) Inhale 2 Puffs as directed 2 times daily. Active Surgical History Surgery Date Site/Laterality Comments LUNG BIOPSY FOOT SURGERY BLADDER SURGERY EYE SURGERY cateract removal Medical History Medical History Date Comments Hyperlipidemia Hypertension Social History Tobacco Use Types Packs/Day Years Used Date Smoking Tobacco: Former Comments:quit 1973 Alcohol Use Standard Drinks/Week Comments No 0 (1 standard drink = 0.6 oz pur e alcohol) Comments Unknown Sex and Gender Information Value Date Recorded Sex Assigned at Not on file Legal Sex Female 18:46 EST Gender Identity Not on file Sexual Orientation Not on file Obstetrics History Last Filed Vital Signs Vital Sign Reading [...] Body Mass Index 25.69 12/20/2008 1530 EDT Plan of Treatment Health Maintenance Due Date Last Done Comments Fall Risk Screening 09/21/2000 RSV Immunization ( o r 60+ Years) (1 - 1-dose 75+ series) 09/21/2010 COVID-19 Vaccine ( season) 2023 Insurance [employer] MEDICARE Care Teams Clinical Resource Nurse Relationship Specialty Start Date End Date Rivera Spain MD [address] [place] [address] PCP - General 12/12/08
--- OUTSIDE RECORDS SUMMARY | 2024-02-08 17:26 | XMS_ITS | Encounter Summary ---
Author Organization Health system Address [address] [place] [address] Care Team Providers Care Double Cutter Name Role Phone Benji Denney MD Primary Care Provider [phone] Encounter Details Date Type Department Care Team (Latest Contact Info) Description 12/16/2008 8:28 EDT - 12/16/2008 19:14 EDT Hospital Encounter [facility] Cardiovascular Unit [address] [place] [address] Dayna Ramirez MD [address] [place] [phone] Discharge Disposition: Home or Self Care Social [...] Sign Reading Time Taken Comments Blood Pressure 142/70 12/16/2008 1331 EDT Pulse 60 12/16/2008 1331 EDT Temperature 36 ??C (96.8 ??F) 12/16/2008 1245 EDT Respiratory Rate 11 12/16/2008 1145 EDT Oxygen Saturation 100% 12/16/2008 1331 EDT Inhaled Oxygen Concentration - - Weight - - Height - - Body Mass Index - - documented in this encounter Medications at Time [...] documented in this encounter Progress Notes * Micaela Saini RN - 12/16/2008 1324 EDT Pt greeted, verified pt ID an consents. Outboard Motor Tester scan done, conscious sedation started, fna's obtained. Meds and O2 titrated througout procedure. 1145 procedure complete, vss, report called to [facility] nurse. Pt on stretcher in prone position. Transported In stable condition. KET * Lauren Cortez RN - 12/16/2008 1212 EDT 1210 pt admitted to [facility] post lung bx pt lying prone, son Jabier at bedside.-djp * Lo Deshpande LPN - 12/16/2008 0935 EDT 0900 Arrived in CVU walking. Son at bed sidde, call rivas in place, stretcher in low position. Waiting for procedure. Sates comfortable. M.M. documented in this encounter Procedure Notes * Diallo Han PA-C - 12/16/2008 1156 EDTProcedure(s): LUNG BIOPSY Pre-Procedure Diagnose(s): Lung nodule Radiologist: Hiram/GRISEL Han Procedure: CT guided right lung biopsy Diagnosis/Reason: Right Lung nodule Anesthesia: Approach: Posterior right Medications: Fentanyl 100 mcg Versed 3 mg Contrast: Specimens: FNA x 8 Cultures: Preliminary Findings: Complications: None EBL: None Recommendations: F/u pathology Cosigned by Marquise Sparrow MD at 12/19/2008 16:25 EDT documented in this encounter OR Notes * Anesthesia Procedure Notes - Inpatient, Physician - 12/25/2008 1114 EDT documented in this encounter Miscellaneous Notes * Scanned Note-Null - Inpatient, Physician - 12/25/2008 1114 EDT * Scanned Note-Null - Inpatient, Physician - 12/25/2008 1114 EDT * Scanned Note-Null - Inpatient, Physician - 12/25/2008 1114 EDT documented in this encounter Plan of Treatment Not on file documented as of this encounter Procedures Procedure Name Priority Date/Time Associated Diagnosis Comments CHEST PA Routine 12/16/2008 13:58 EDT CYTOPATHOLOGY Routine 12/16/2008 0:00 EDT documented in this encounter Results * CHEST PA (12/16/2008 13:58 EDT) Anatomical Region Laterality Modality Other 12/16/2008 13:5 8 EDT 12/16/2008 14:22 EDT Narrative 12/16/2008 14:22 [...] biopsy. No other abnormalities are noted. us Diallo Han PA-C [facility] DIAGNOSTIC IMAGING OR DERABLES Final Result * CYTOPATHOLOGY (12/16/2008 0:00 EDT) Pathology Report: CYTOPATHOLOGY REPORT ? Reports generated via electronic interface contain original data; ? however they are lacking the format of the original report. ? Caution should be taken when reading/interpreting unformatted reports. ? Name: ? KENDRA MARIE I ? Accession #: ? [id number] ? : ? 1935 (Age: 73) ??F ?Collect Date: ? 12/16/2008 ? Location: ? [facility] ? Receive Date: ? 12/16/2008 ? Provider: MARQUISE SPARROW MD ? Copy to: DIALLO HAN PA ? DAYNA SNEEDKY MD ? BENJI DENNEY MD ? BRII VILLAFANA MD ?Fine Needle Aspiration/Core Biopsy (Assisted) ?Radiology Department, [place] ([facility]) ? Addendum ? Date Ordered: ? 12/24/2008 ? Status: Signed Out ? Date Complete: ? 12/24/2008 ? By: Chiara Galloway ? Date Reported: ? 12/25/2008 ? Addendum Comment ? A call was received on December 20, [address] Evelyne Villafana, with ? information that the patient did not have a liver lesion, as previously stated ?? in the clinical history, but a renal mass. ??Dr. Villafana requested that ? appropriate immunochemistry be performed to ensure that the pulmonary mass was ?? primary, and not a metastasis from the renal tumor. ??In the presence of good ? positive and negative tissue and cell controls, the following immuno-results ? were obtained. ? Antibody (Clone) ? Result ? CK7 (OV-TL 12/30, [facility]) ?Positive ? CK20 (Ks20.8, [facility]) ?Negative ? CD10 (56C6, [facility]) ?Negative ? These results confirm the primary tumor as pulmonary in origin. ??There is no ? change in the initial diagnosis. The results were conveyed to Dr Villafana ? telephonically by Dr Joshua Perea on December 23, 2008. ? NOTE: ??One or more of the reagents used in immunohistochemical testing in this case may not have been cleared or approved by the U.S. Food and Drug ? Administration (FDA). ??The FDA has determined that such clearance or approval is not necessary. ??These tests are used for clinical purposes. ??They should not be regarded as investigational or for research. ??These reagents' ??performance ? characteristics have been determined by [facility]. ??This ? laboratory is certified under the Clinical Laboratory Improvement Amendments of 1988 (CLIA-88) as qualified to perform high complexity clinical laboratory ? testing. ? Document reviewed and electronically signed by: ? LING VELARDE [facility] ? Report date: 12/25/2008 ? By the signature above, the attending physician certifies that he/she has ? personally conducted a gross and/or microscopic examination of the described ? specimens and rendered or confirmed the above diagnosis. ? Final Report ? Cytologic Diagnosis: ? Lung, right upper lobe, CT guided fine needle aspiration: ? - Adenocarcinoma, with features suggestive of bronchioloalveolar subtype. ??See ?? comment. ? Comment: ? Microscopic examination shows a neoplastic glandular cell population in the latter needle passes. ??The cells are of large size, with fairly abundant ? cytoplasm. ??Nuclei are relatively monotonous, although slight variation in size is seen. ??The chromatin is finely granular, nucleoli are present, and occasional cells demonstrate intranuclear cytoplasmic inclusions. ??The features are those ?? of adenocarcinoma, with a strong suggestion of bronchiolar subtyping. ??This ? result faxed to Dr. Ramirez on December 17, 2008. ??(Dr. Velarde)/garo ? Rapid Interpretation: ? Lung, right upper lobe, CT guided fine needle aspiration: ? Evaluation #1: ? Passes 1+2: ??Blood only. ? Evaluation #2: ? Passes 3+4: ??Blood only. ? Evaluation #3: ? Passes 5+6: ??Blood only. ? Evaluation #4: ? Passes 6+7: ??Well differentiated carcinoma; ? 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 (Dr Iveth Velarde, 12/16/2008, 11:45 a.m.) ? Gross Description: ? 16 fixed prepared slides and 1 tube of CytoLyt were received and processed by selective cellular enhancement technique. ? Clinical History: ? Distant smoking history, cough, dyspnea, nodule on CT, hilar ? lymphadenopathy, liver lesion ? Specimen Type: ??Lung, Fine Needle Aspiration, Right Upper Lobe ? Document reviewed and electronically signed by: ? LING VELARDE MD [facility] ? Report ??Date: 12/17/2008 17:29 ? By the signature above, the attending physician certifies that he/she has ? personally conducted a gross and/or microscopic examination of the described ? specimens and rendered or confirmed the above diagnosis. ? End of Report ? [facility] 12/16/2008 12/16/2008 12: 23 EDT us aDyna Ramirez MD PATHOLOGY ORDERABLES Marlene evelyne Result [facility] [address] [place] [address] documented in this encounter Visit Diagnoses Not on filedocumented in this encounter Administered Medications Inactive Administered Medications - up to 3 most recent administrations Medication Order MAR Action Action Date Dose Rate Site fentanyl citrate (PF) 50 mcg/mL injection 25-250 mcg 25-250 mcg, intravenous, ONCE PRN, 1 dose, Starting on Tue12/16/08 at 1006, Until Tue12/16/08 at 1200, Other, radiology, Routine, Intraprocedure Given 12/16/2008 12:00 EDT 100 mcg midazolam (VERSED) injection 0.5-10 mg 0.5-10 mg, intravenous, ONCE PRN, 1 dose, Starting on Tue12/16/08 at 1006, Until Tue12/16/08 at 1324, Sedation, Routine, Intraprocedure Given 12/16/2008 13:24 EDT 3 mg documented in this encounter Historical Medications * This list may reflect changes made after this encounter. FLUTICASONE/SALME TEROL (ADVAIR DISKUS INHL) Inhale 2 Puffs as directed 2 times daily. ATORVASTATIN CALCIUM (LIPITOR ORAL) Take 20 mg by mouth daily. diazepam (VALIUM) 2 mg tablet Take 2 mg by mouth as needed for Anxiety. bisoprolol-hydroc hlorothiazide (ZIAC) 10-6.25 mg per tablet Take 1 Tab by mouth. added in this encounter Active and Recently Administered Medications Times are shown in EDT. PRN Medication Order 12/14/2008 12/15/2008 12/16/2008 fentanyl citrate (PF) 50 mcg/mL injection 25-250 mcg (COMPLETED) 25-250 mcg, intravenous, ONCE PRN, 1 dose, Starting on Tue12/16/08 at 1006, Until Tue12/16/08 at 1200, Other, radiology, Routine, Intraprocedure 1200 (Given - Provid er: Micaela Saini RN) midazolam (VERSED) injection 0.5-10 mg (COMPLETED) 0.5-10 mg, intravenous, ONCE PRN, 1 dose, Starting on Tue12/16/08 at 1006, Until Tue12/16/08 at 1324, Sedation, Routine, Intraprocedure 1324 (Given - Provid er: Micaela Saini RN) documented in this encounter Orders Medications Ordered That [place] ht Not Have Been Administered Count Last Ordered Date First Ordered Date acetaminophen (TYLENOL) tablet 650 mg 1 ondansetron (PF) (ZOFRAN) 4 mg/2 mL injection 4 mg 1 12/16/2008 sodium chloride 0.9 % (NS) infusion 1 12/16 Diet Count Last Ordered Date First Orde red Date DIET NPO TIME SPECIFIED 12/16/2008 Nursing Count Last Ordered Date First Orde red Date NURSING COMMUNICATION 12/16/2008 documented in this encounter Care Teams Double Cutter Relationship Specialty Start Date End Date Benji Denney MD [address] [place] [address] PCP - General 12/12/08 documented as of this encounter
--- OUTSIDE RECORDS SUMMARY | 2024-02-08 17:26 | XMS_ITS | Referral Summary ---
Author Organization [facility] Address [address] [place] [address] Care Team Providers Care Loan Servicing Officer Name Role Phone Rivera Spain MD Primary Care Provider [phone] Allergies Active Allergy Reactions Criticality Noted Date [...] Puffs as directed 2 times daily. Active Social History Tobacco Use Types Packs/Day Years [...] 25.69 12/20/2008 1530 EDT Plan of Treatment Not on file Insurance [employer] MED[employer]ARE Care Teams Loan Servicing Officer Relationship Specialty Start Date End Date Rivera Spain MD [address] [place] [address] PCP - General 12/12/08
--- OUTSIDE RECORDS SUMMARY | 2024-02-08 17:27 | XMS_ITS | Encounter Summary ---
Author Organization [facility] [place] [address] Care Team Providers Care Technology Integration Specialist Name Role Phone Rivera Spain MD Primary Care Provider Encounter Details Date Type Department Care Team (Late st Contact Info) Description 07/28/2009 Orders Only Dermatology at [place] [address] [place] [phone] Jeremy Li MD [address], [place] [address] Social History Tobacco Use Types Packs/Day Years Used Date Smoking Tobacco: Never Assessed Sex and Gender Information Value Date Recorded Sex Assigned at Not on file Gender Identity Not on file Sexual Orientation Not on file documented as of this encounter Plan of Treatment Not on file documented as of this encounter Procedures Procedure Name Priority Date/Time Associated Diagnosis Comments SURGICAL PATHOLOGY REPORT Routine 07/28/2009 5:59 PM EDT documented in this encounter Results * Surgical Pathology Report (07/28/2009 5:59 PM EDT) Surgical Pathology Report [id number] ? Location: [facility] The signing pathologist has (i) examined the relevant preparation(s) for the specimen(s) and (ii) rendered or confirmed the diagnosis(es). . 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 R forehead, formalin. Qty/Size/Weight : ?Single shave, 0.7 cm, centrally crusted, ?friable, de la o-white skin. Sections/Proces sing: ??Inked, trisected. ??(T1) ?jlk/EJR Microscopic Description Slides reviewed, microscopic description not recorded. Diagnosis Skin of right forehead, shave biopsy: ??Invasive s quamous cell carcinoma, involving peripheral and deep biopsy ??edges. 07/30/09 AEP 07/30/09 Verified by: ? Dionicio DALLAS, Shari Johnson. ?Dermatopathol ogist ?(Electronic Signature) The attending pathologist whose signature appears on this report has reviewed all diagnostic slides and has edited the gross and/or microscopic portion of the report in rendering the final pathologic diagnosis. KATERYNA HOWARD 07/28/2009 5:59 PM EDT Jeremy Li MD PATHOLOGY/CYTOLOGY O RDERABLES KATERYNA HOWARD documented in this encounter Visit Diagnoses Not on filedocumented in this encounter Care Teams Technology Integration Specialist Relationship Specialty Start Date End Date Rivera Spain MD [address] [place] [id number] PCP - General 02/17/10 documented as of this encounter
--- OUTSIDE RECORDS SUMMARY | 2024-02-08 17:27 | XMS_ITS | Encounter Summary ---
Author Organization [facility] [place] [address] Care Team Providers Care Licensed Prosthetist Name Role Phone Rivera Spain MD Primary Care Provider Encounter Details Date Type Department Care Team (Late st Contact Info) Description 03/29/2019 External [place] [phone] Provider, Scanning Social History Tobacco Use Types Packs/Day Years [...] Priority Date/Time Associated Diagnosis Comments SURGICAL PATHOLOGY SCAN Routine 03/29/2019 documented in this encounter Results * Scan Doc: Surgical Pathology (03/29/2019) Historical Provider MD VASQUEZ MGR SCAN EX T ORDR/RSLT documented in this encounter Visit Diagnoses Not on filedocumented in this encounter Care Teams Licensed Prosthetist Relationship Specialty Start Date End Date Rivera Spain MD [address] [place] [address] PCP - General 02/17/10 documented as of this encounter
--- OUTSIDE RECORDS SUMMARY | 2024-02-08 17:27 | XMS_ITS | Encounter Summary ---
Author Organization [facility] [place] [address] Care Team Providers Care Pain Management Nurse Name Role Phone Rivera Spain MD Primary Care Provider Encounter Details Date Type Department Care Team (Late st Contact Info) Description 08/18/2009 Orders Only Dermatology at [place] [address] [place] [phone] Jeremy Li MD [address], [place] [address] Social History Tobacco Use Types Packs/Day Years [...] Associated Diagnosis Comments SURGICAL PATHOLOGY REPORT Routine 08/18/2009 6:08 PM EDT documented in this encounter Results * Surgical Pathology Report (08/18/2009 6:08 PM EDT) Surgical Pathology Report [id number] ? Location: [facility] The signing pathologist has (i) examined the relevant preparation(s) for the specimen(s) and (ii) rendered or confirmed the diagnosis(es). . ?Pathology Surgical Pathology Final Report Clinical Information Specimen Submitted: A - (R) forehead, excision Clinical History: Bx-proven SCCa for excision [id number]. ??Suture at 3 o'clock Clinical Diagnosis: SCCa Report to: Jeremy Li MD, [address] [facility] [place], [place] ??[address] Gross Description Labeled/Fixativ e: ? R forehead, formalin. Qty/Size/Weight : ?Single, 2.2 x 1.2 x 0.4 cm. Tissue Description: ?? Ellipse of pale, de la o-perales skin with a suture ?present at one apex, identified as 3 o'clock. ??Centrally, there is an encrusted recent biopsy site, 0.4 cm in diameter. ??The specimen is oriented with the suture at 3 o'clock. Sections/Proces sing: ??The margin from 9 to 12 to 3 o'clock is marked ?yellow. ??The opposite margin and deep margin are marked black. The specimen is serially sectioned from 3 o'clock to 9 o'clock and totally submitted in four cassettes with the 3 o'clock apex in (A1) and the 9 o'clock apex in (A4). (T4) ??vms/PPS Microscopic Description Slides reviewed, microscopic description not recorded. Diagnosis Skin, right forehead, excision: ?? 1. ??Ulcer. ?? 2. ??There is no residual carcinoma. CR-0 08/20/09 JLK 08/20/09 Verified by: ? Pierce DALLAS, Jayesh Cope ?Dermatopathol ogist ?(Electronic Signature) The attending pathologist whose signature appears on this report has reviewed all diagnostic slides and has edited the gross and/or microscopic portion of the report in rendering the final pathologic diagnosis. CERNER MILLENNIUM 08/18/2009 6:08 PM EDT Jeremy Li MD PATHOLOGY/CYTOLOGY O LE Performing Organization Address City/State/[facility] Co ri Phone Number [facility] documented in this encounter Visit Diagnoses Not on filedocumented in this encounter Care Teams Pain Management Nurse Relationship Specialty Start Date End Date Rivera Spain MD [address] [place] [id number] PCP - General 02/17/10 documented as of this encounter
--- OUTSIDE RECORDS SUMMARY | 2024-02-08 17:27 | XMS_ITS | Encounter Summary ---
Author Organization [facility] [place] [address] Care Team Providers Care Bacteriology Technician Name Role Phone Rivera Spain MD Primary Care Provider [phone] Reason for Visit * Reason Comments Skin Check * Consultation (Routine) - Specialty Diagnoses / Procedures Referred By Contcm t Referred To Contact Dermatology Diagnoses Other skin changes due to chronic exposure to nonionizing radiation Actinic Damage Procedures Consult Rivera Spain MD [address] [place] [address] Jeremy Li MD [address] [place] [address], [facility] [place] [address] Referral ID Status Reason Start Date Expiration Date V isits Requested Visits Authorized [id number] Consult, Test & Treat PCP Updated and/or Approved 12/14/2018 06/14/2019 6 6 Encounter Details Date Type Department Care Team (Late st Contact Info) Description 03/27/2019 10:45 AM EST Office Visit Dermatology at [address] [phone] Jeremy Li MD [address] [place] [address], [facility] D[facility] [place], [place] [phone] History of SCC (squamous cell carcinoma) of skin; AK (actinic keratosis) Social History Tobacco Use Types Packs/Day Years Used Date Smoking Tobacco: Never Smokeless Tobacco: Never Sex and Gender Information Value Date Recorded Sex Assigned at Not on file Gender Identity Not on file Sexual Orientation Not on file documented as of this encounter Progress Notes * Jeremy Li MD - 03/27/2019 10:45 AM EST Problem: 1. Actinic damage 2. History of SCCA right forehead excised [address] Li 3. History of lung CA 2009 status post lobectomy, patient doing well Beryle follows up after last seeing me in 2009. About the same time also she was diagnosed with a lung CA and had 1 lobe of her lung excised has been doing well for the last 10 years!. Today she is here referred by Dr. Spain for general skin checkup. She has extensive sun damage ofthe face. Dr. Spain has treated several sites with liquid nitrogen but they keep on recurring, her son Markos states. Physical examination reveals a pleasant 83-year-old woman who suffers from mild dementia who is here with her son Markos who lives with her. She has hyperkeratotic actinic's present on the cheeks below her left eye forehead and by the right by her right eyebrow. She has smaller actinic's spread diffusely as well, making treatment with liquid nitrogen impractical today. She has an atypical dark pigmented 1.5cm patch on the right dorsal hand over the right second MCP joint. She has a soaker helper and smaller solar lentigos present on dorsal hands as well which appear entirely unremarkable, as well asbeing also on the forearms and face. She has a large lipoma on the left dorsal forearm which is about 4 cm in diameter. It is asymptomatic. Is been present for extended period of time Assessment and plan: Lipoma left forearm 1. Patient reassured 2. Would recommend general surgical consultation should she decide to have this removed. Atypical pigmented patch right dorsal hand over second MCP 1. Today shave biopsy obtained for confirmation histologically of diagnosis 2. Suspect possible melanoma in situ. 3. Discussed possible need for excision of the site if this is positive. Diffuse actinic damage facial 1. Given diffuse nature and advanced nature of her actinic damage could recommend a course of 5-FU 2. Discussed benefits side effects of 5-FU with patient and with her son Markos 3. Apply 5 fluorouracil 5% cream on a twice daily basis to face for 10 days and return to clinic. Dispense 45 g with 0 refills 4. Twice daily 30 minutes after each 5-FU application, apply triamcinolone 0.1% cream. Dispense 30 g with 1 refill. 5. Stressed repeatedly the expected inflammatory inflammation and redness that this treatment will cause. CC: Rivera Spain MD documented in this encounter Plan of Treatment Not on file documented as of this encounter Visit Diagnoses Diagnosis History of SCC (squamous cell carcinoma) of skin Personal history of other malignant neoplasm of skin AK (actinic keratosis) Actinic keratosis documented in this encounter Care Teams Bacteriology Technician Relationship Specialty Start Date End Date Rivera Spain MD [address] [place] [id number] PCP - General 02/17/10 documented as of this encounter
--- OUTSIDE RECORDS SUMMARY | 2024-02-08 17:27 | XMS_ITS | Encounter Summary ---
Author Organization [facility] [place] [facility] [place] [address] Care Team Providers Care Engineer Chief Name Role Phone Rivera Spain MD Primary Care Provider Encounter Details Date Type Department Care Team (Late st Contact Info) Description 06/24/2011 Abstract [facility] [address] [place] [address] Austyn Reyes MD [address] [place] [address] [place], [place] [id number] Social History Tobacco Use Types Packs/Day Years [...] Mass Index 26.15 12/29/2010 11:35 AM EDT documented in this encounter Plan of Treatment Not on file documented as of this encounter Visit Diagnoses Not on filedocumented in this encounter Care Teams Engineer Chief Relationship Specialty Start Date End Date Rivera Spain MD [address] [place] [id number] PCP - General 02/17/10 documented as of this encounter
--- OUTSIDE RECORDS SUMMARY | 2024-02-08 17:27 | XMS_ITS | Encounter Summary ---
Author Organization Count Includes [facility] Address [facility] [place] [address] Care Team Providers Care Jockey'S Agent Name Role Phone Rivera Spain MD Primary Care Provider Encounter Details Date Type Department Care Team (Late st Contact Info) Description 01/10/2009 Orders Only Cardiothoracic [place] [address] Heidi Stevenson MD [facility] [place] [address] Social History Tobacco Use Types Packs/Day Years [...] Associated Diagnosis Comments SURGICAL PATHOLOGY REPORT Routine 01/10/2009 2:25 PM EDT documented in this encounter Results * Surgical Pathology Report (01/10/2009 2:25 PM EDT) Surgical Pathology Report [id number] ? Location: [facility]; [facility]; A The signing pathologist has (i) examined the relevant preparation(s) for the specimen(s) and (ii) rendered or confirmed the diagnosis(es). . ? Pathology Molecular Genetics Report Results CORRECTED REPORT (see Comment) ? EGFR Mutation Analysis (C6) INDICATION FOR STUDY: ?? Lung cancer. ANALYSIS: ?? EGFR Gene Mutation Analysis Results: ??Negative for exon 19 and 21 mutations in the EGFR gene ?? . Comments: ??The results of this test indicate that tumor cells present in the tested tissue were negative for EGFR mutations. This assay tests for two of the most common EGFR mutations described to be associated with therapeutic options. Methods: ?? Highly purified genomic DNA was extracted from a formalin fixed paraffin embedded tissue section after lysing of the cells. EGFR mutation analysis was performed by two PCRs. One PCR uses primers to amplify a target DNA sequence in exon 19 of the EGFR gene and the other PCR uses ??primers to amplify a target DNA in exon 21 of the EGFR gene. ??Amplification of both exon 19 and exon 21 target sequences were confirmed by gel electrophoresis. The amplified target sequence from exon 21 was then subjected to enzymatic digestion to allow for discrimination of normal and mutant sequences. Fragment sizing by capillary electrophoresis was performed following PCR to detect the exon 19 deletion and following enzymatic digestion to detect the exon 21 point mutation. While DNA testing is very accurate, rare diagnostic errors due to various pre- and post-analytical variables do occur. This test was developed and its performance determined by the [facility] (TRL) at the [facility]. It has not been cleared or approved by the U.S. Food and Drug Administration. This test is used for clinical purposes and should not be considered as investigational or for research purposes. The TRL is certified by the Clinical Laboratory Improvement Act of 1988 and as such is allowed to perform high complexity clinical testing. References: ??Kosaka T, et al. Cancer Research 2004, 64:6528-6954; Cristy M and Maria Teresa W, Mod Pathol 2008, 21:S16-S22. Correction Note: ??The report is corrected to reflect the block used for mutation analysis. There are no other changes to the text of this report. Reviewed by: ?? Bren Fisher, Ph.D. ??(kapil, 01/17/09 10:48) ?Director, Molecular Pathology [facility] 01/21/09 08:30 Verified date: ??10/20/09 ??[facility] Verified by: ?Nixon Pickett MD ?(Electronic Signature) . ? Pathology Molecular Genetics Report Results CORRECTED REPORT (see Comment) KRAS Mutation Analysis (C6) INDICATION FOR STUDY: ?? Lung cancer. ANALYSIS: ?? KRAS Mutation Analysis Results: ??Negative for KRAS mutation . Comments: ??The results of this test indicate that the tumor cells present in the tested tissue were negative for a KRAS mutation. This suggests that this patient will benefit from treatment with Cetuximab or Panitumumab. Methods: ?? Highly purified genomic DNA was extracted from a formalin fixed paraffin embedded tissue section after lysing of the cells. KRAS mutation analysis was performed using three separate PCR reactions and three separate probes. This assay tests for seven of the most common KRAS mutations. While DNA testing is very accurate, rare diagnostic errors due to various pre- and post-analytical variables do occur. This test was developed and its performance determined by the [facility] (TRL) at the [facility]. It has not been cleared or approved by the U.S. Food and Drug Administration. This test is used for clinical purposes and should not be considered as investigational or for research purposes. The TRL is certified by the Clinical Laboratory Improvement Act of 1988 and as such is allowed to perform high complexity clinical testing. References: ??Jose David FOREMAN, et al. J Clin Oncol 2008, 26:4613-5002; Flakita A, et al., J Clin Oncol 2008, 26 ? :374-379; Ami RIVERO et al., [facility] 2008, 359 ?:5246-8511. Correction Note: ??The report was corrected to reflect block on which mutation analysis was performed. ??There are no other changes to the text of this report. _ Reviewed by: ?? Bren Fisher, Ph.D. ??(gjt, 01/17/09 10:47) ?Director, Molecular Pathology [facility] 01/21/09 08:29 Verified date: ??10/20/09 ??[facility] Verified by: ?Nixon Pickett MD ?(Electronic Signature) ?Pathology Surgical Pathology Final Report Clinical Information Specimen Submitted: A - Level 4 lymph node, right chest B - Level 10 ,lymph node, right chest C - Right upper lobe (no precision therapeutics), right chest Clinical History: Lung cancer, right upper lobe. ??No Precision [employer] please Clinical Diagnosis: Lung cancer, right upper lobe . Gross Description A - Labeled/Fixative: Level-4 lymph node, right chest; fresh. Qty/Size/Weight: ?One lymph node, 1.0 x 0.5 x 0.5 cm. Tissue Description: ?? Single wagoner lymph node. Sections/Processin g: ??(1) one bisected lymph node. ??(T1) B - Labeled/Fixative: Level-10 lymph node, right chest; fresh. Qty/Size/Weight: ?Multiple, 1.0 x 1.0 x 0.2 cm in aggregate. Tissue Description: ?? Seven black lymph nodes, 0.5 cm in greatest ?dimension. Sections/Processin g: ??(1) three whole lymph nodes; (2) four whole lymph ?nodes. ??(T2) C - Labeled/Fixative: Right upper lobe, right chest; fresh. Qty/Size/Weight: ?One, 13.0 x 9.5 x 3.0 cm, 278 g (fixed weight). Tissue Description: ?? Right upper lobe lobectomy. Outer Surface: ?Morgan, smooth, and glistening. ??There is a 0.5-cm area ?of puckering adjacent to the tumor. Margin: ? Not grossly involved. Lesion: ?? Size: ?2.5 x 1.5 x 1.9 cm. ?? Color: ? Wagoner with a central, black area. ?? Consistency: ? Rubbery. ?? Location: ?Peripheral in the anterior segment. ?? Margin: ?The tumor is 4.0 cm from the proximal bronchus. ?? Bronchus: ?Does not appear grossly involved. ?? Pleura: ?Does appear grossly involved with an area of ?puckering adjacent to the tumor. Secondary Lesions: ?There is a second lesion, 2.5 x 0.7 x 0.5 cm. ??It is ?plaque-like and appears to involve the pleura. ??It is wagoner to black in color and rubbery in consistency. ??It is located peripherally in the medial lateral segment. Parenchyma: ? Appears congested and focally hemorrhagic. LN: ? There are ten hilar lymph nodes, ranging from 0.4 cm ?to 1.2 cm. ??There are four parenchymal lymph nodes, ?ranging in size from 0.3 cm to 0.5 cm. Sections/Processin g: ??(1-3) en face staple line margin; (4) bronchial ?margin; (5) vascular margin; (6) primary tumor to pleura; (7) primary tumor to adjacent parenchyma; (8) secondary tumor to pleura; (9) secondary tumor to adjacent parenchyma; (10-11) uninvolved parenchyma between two lesions; (12) one bisected hilar lymph node; (13) four whole hilar lymph nodes; (14) two whole hilar lymph nodes; (15) one bisected hilar lymph node; (16) one bisected hilar lymph node; (17) one bisected hilar lymph node; (18) two ??bisected parenchymal lymph nodes; (19) one bisected and one whole parenchymal lymph node. ??(R19) e/[facility] Microscopic Description Slides reviewed, microscopic description not recorded. Diagnosis Specimen Type: ? A - Level 4 lymph node, right chest ? B - Level 10 ,lymph node, right chest ? C - Lung, Right upper lobectomy Tumor Location: ?[facility] Histologic Type : ? 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 Low grade Tumor Size : ?2.5 cm. Separate Tumor Nodule(s) ? No ??(Yes/No) Main Bronchus Invasion: ?Not identified. Visceral Pleura Invasion: ?Not identified. Angiolymphatic Invasion: ? Not identified. Lymph Nodes: ? A - Level 4 lymph node, right (1) ? B - Level 10 ,lymph node, right (7) . Diagnosis ? C - Lung, Right upper lobar (14) ?? Total # submitted: ?22 ?Number Positive Nodes : ?0 Resection Margins : ?negative for malignancy ?? Bronchial: ?negative for malignancy ?? Vascular: ? negative for malignancy Squamous Metaplasia: ? Not identified. Dysplasia: ? Not identified. Correlation Biopsy/Cytology: ? NA AJCC/UICC 7th ed stage ? pT1b pNo pMX Other Findings: ?1 - Acute and chronic pleuritis ? 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 3 - Emphysema *Note: X Testing for EGFR/KRAS mutation is ordered and will be reported in an addendum. CR-0 01/14/09 VAM 01/14/09 Verified by: ? Nixon Pickett MD ?Pathologist ?(Electronic Signature) The attending pathologist whose signature appears on this report has reviewed all diagnostic slides and has edited the gross and/or microscopic portion of the report in rendering the final pathologic diagnosis. KATERYNA [place] 01/10/2009 2:25 PM EDT Heidi Stevenson MD PATHOLOGY/CYTOLOGY O [facility] documented in this encounter Visit Diagnoses Not on filedocumented in this encounter Care Teams Jockey'S Agent Relationship Specialty Start Date End Date Rivera Spain MD [address] [id number] PCP - General 02/17/10 documented as of this encounter
--- OUTSIDE RECORDS SUMMARY | 2024-02-08 17:27 | XMS_ITS | Encounter Summary ---
Author Organization [facility] [place] [address] Care Team Providers Care Director Of Epidemiology Name Role Phone Rivera Spain MD Primary Care Provider Reason for Visit * Reason Comments Follow-up Encounter Details Date Type Department Care Team (Late st Contact Info) Description 04/06/2019 3:15 PM EST Office Visit Dermatology at [address] [phone] Jeremy Li MD [address] [facility] [place] [address] History of SCC (squamous cell carcinoma) of skin; AK (actinic keratosis) Social History Tobacco Use Types Packs/Day Years Used Date Smoking Tobacco: Never Smokeless Tobacco: Never Sex and Gender Information Value Date Recorded Sex Assigned at Not on file Gender Identity Not on file Sexual Orientation Not on file documented as of this encounter Progress Notes * Jeremy Li MD - 04/06/2019 3:15 PM EST Problem: 1. Actinic damage status post 7 days of a 5-FU/triamcinolone course 2. History of SCCA right forehead excised August [address] Li 3. History of lung CA 2009 status post lobectomy, patient doing well Tanner follows up and with her son, Markos. There was some delay in her getting the medication and she is been somewhat dubious about using it twice daily. Often it has only been once a day. Sometimesin the evening she would wipe her face off after its application. She was afraid of getting into her eyes. We discussed the safety of application and the on the likely possibility of it actually getting into her eyes. Physical examination reveals a pleasant 83-year-old woman who has very minimal erythema at the facewhere she has been applying the 5-FU diffusely. The patient suffers from mild dementia. The problemspots are the tip of her nose and the left upper cutaneous lip where she has a total of 2 hyperkeratotic 8 mm papules. So far there is been an inadequate response to therapy. Assessment and plan: Actinic keratoses facial 1. Recommend that we go on for 1 more week, 7 days, utilizing the twice daily applications of 5-FU/triamcinolone 2. Return to clinic in 1 week for repeat check. 3. I requested that Markos supervise his mother in the application of these 2 creams. Solar lentigo, right dorsal hand 1. Fortunately shave biopsy site came back benign. 2. Appears atypical but no evidence of melanoma seen. CC: Rivera Spain MD documented in this encounter Plan of Treatment Not on file documented as of this encounter Visit Diagnoses Diagnosis History of SCC (squamous cell carcinoma) of skin Personal history of other malignant neoplasm of skin AK (actinic keratosis) Actinic keratosis documented in this encounter Care Teams Director Of Epidemiology Relationship Specialty Start Date End Date Rivera Spain MD [address] [place] [id number] PCP - General 02/17/10 documented as of this encounter
--- OUTSIDE RECORDS SUMMARY | 2024-02-08 17:27 | XMS_ITS | Encounter Summary ---
Author Organization [facility] [place] [address] Care Team Providers Care Medical Research Associate Name Role Phone Rivera Spain MD Primary Care Provider [phone] Encounter Details Date Type Department Care Team (Late st Contact Info) Description 03/27/2019 Refill Dermatology at [address] [phone] Juanis Newberry, INFORMATION TECHNOLOGY ANALYST Social History Tobacco Use Types Packs/Day Years [...] on filedocumented in this encounter Care Teams Medical Research Associate Relationship Specialty Start Date End Date Rivera Spain MD [address] [place] [address] PCP - General 02/17/10 documented as of this encounter
--- OUTSIDE RECORDS SUMMARY | 2024-02-08 17:27 | XMS_ITS | Encounter Summary ---
Author Organization [facility] [place] [address] Care Team Providers Care Cleaning Maid Name Role Phone Rivera Spain MD Primary Care Provider [phone] Reason for Visit * Reason Comments Follow-up Encounter Details Date Type Department Care Team (Late st Contact Info) Description 04/16/2019 3:30 PM EST Office Visit Dermatology at [address] [phone] Jeremy Li MD [address] [facility] [place] [address] AK (actinic keratosis); History of SCC (squamous cell carcinoma) of skin Social History Tobacco Use Types Packs/Day Years Used Date Smoking Tobacco: Never Smokeless Tobacco: Never Sex and Gender Information Value Date Recorded Sex Assigned at Not on file Gender Identity Not on file Sexual Orientation Not on file documented as of this encounter Progress Notes * Jeremy Li MD - 04/16/2019 3:30 PM EST Problem: Follow-up actinic damage status post 7 days of 5-FU/triamcinolone application Tanner follows up and has had a acceptable mild to moderate reaction to the combination 5-FU/triamcinolone cream. It has been applied correctly and appropriately this time around. Unfortunately at time of her last visit she had not applied religiously. She is here today with her other son Jack. Physical examination reveals a pleasant 83-year-old woman who has mild to moderate erythema at the sites of actinic damage on the forehead the cheeks and of the hyperkeratotic lesion on the bridge ofher nose. Assessment and plan Actinic keratosis diffuse, facial 1. Patient congratulated on good response 2. May discontinue 5-FU, but continue triamcinolone 0.1% cream twice daily if treated areas until remaining erythema fades. 3. Return to clinic in another 6 months for repeat check. 4. Patient congratulated on her good response to therapy and what I think would be an excellent outcome. CC: Rivera Spain MD documented in this encounter Plan of Treatment Not on file documented as of this encounter Visit Diagnoses Diagnosis AK (actinic keratosis) Actinic keratosis History of SCC (squamous cell carcinoma) of skin Personal history of other malignant neoplasm of skin documented in this encounter Care Teams Cleaning Maid Relationship Specialty Start Date End Date Rivera Spain MD [address] [place] [id number] PCP - General 02/17/10 documented as of this encounter
--- OUTSIDE RECORDS SUMMARY | 2024-02-08 17:27 | XMS_ITS | Encounter Summary ---
Author Organization [facility] [place] [address] Care Team Providers Care Radiology Supervisor Name Role Phone Rivera Spain MD Primary Care Provider [phone] Encounter Details Date Type Department Care Team (Latest Contact Info) Description 03/27/2019 9:26 PM EST - 03/27/2019 11:59 PM EST [place] [phone] Discharge Disposition: Home Social History Tobacco Use Types Packs/Day Years Used Date Smoking Tobacco: Never Smokeless Tobacco: Never Sex and Gender Information Value Date Recorded Sex Assigned at Not on file Gender Identity Not on file Sexual Orientation Not on file documented as of this encounter Medications at Time of Discharge Medication Sig Dispensed Refills Start Date End Date amLODIPine (NORVASC) 2.5 mg Tablet 03/15/2019 azelastine (ASTELIN) 137 mcg (0.1 %) Aerosol, [place] INSTILL 2 SPRAYS INTO EACH NOSTRIL TWICE A DAY 01/10/2019 benzonatate (TESSALON) 100 mg Capsule 02/14/2019 rivastigmine (EXELON) 4.6 mg/24 hr Patch 24 hr 12/13/2018 fluorouracil (EFUDEX) 5 % Cream Apply twice daily to face for 10 days then return to clinic. 45 g 03/27/2019 triamcinolone (KENALOG) 0.1 % Cream Apply twice daily 30 minutes after each 5-FU application for 10 days, and then by itself bid until rash clears 30 g 1 03/27/2019 clotrimazole (LOTRIMIN) 1 % cream Apply topically 2 times daily. albuterol (PROVENTIL HFA;VENTOLIN HFA) 90 mcg/Actuation inhaler Inhale 2 puffs into the lungs every 4 hours as needed. Use with spacer Fluticasone 50 mcg/Actuation DsDv Inhale into the lungs. atorvastatin (LIPITOR) 20 mg tablet 10/06/2009 bisoprolol-hydrochlorot hiazide (ZIAC) 10-6.25 mg per tablet 10/06/2009 diaZEPam (VALIUM) 2 mg tablet 10/06/2009 loratadine (CLARITIN) 10 mg tablet 10/06/2009 documented as of this encounter Plan of Treatment Not on file documented as of this encounter Procedures Procedure Name Priority Date/Time Associated Diagnosis Comments SURGICAL PATHOLOGY REPORT Routine 03/27/2019 12:00 PM EST documented in this encounter Results * Surgical Pathology Report (03/27/2019 12:00 PM EST) Final Diagnosis [id number] ? Location: [facility] The signing pathologist has (i) examined the relevant preparation(s) for the specimen(s) and (ii) rendered or confirmed the diagnosis(es). . ?Surgical Pathology DIAGNOSIS Skin, right dorsal 2nd MCP, shave biopsy: - Lentigo and associated early pigmented ?seborrheic keratosis Electronically signed by: ??Karin Hui MD Verified: ??03/29/2019 ?Dermatopatholog ist Performed at: ??-[facility] [place], [place], [place] CLINICAL INFORMATION Specimen Submitted: A - R dorsal 2nd MCP Clinical History and Diagnosis: Atypical pigmented patch; rule out MM in situ/versus lentigo Referring Identifier: ?(not provided) SPECIMEN PROCESSING A - Labeled/Fixative: Patient demographics, formalin. Quantity/Size: ??Single, 1.1 x 0.7 x 0.1 cm. Tissue Description: Shave of de al o-white to predominately brown-red skin. Sections/Processi ng: Inked, quadrisected and entirely submitted in 1 cassette labeled A1. ??apb 03/29/2019 11:44 AM EST [facility] SPECIMEN FROM SKIN / Unknown 03/27/2019 12:00 PM EST 03/27/2019 12:00 PM EST Jeremy Li MD PATHOLOGY/CYTOLOGY O RDERALACIE Performing Organization Address City/State/[facility] Co de Phone Number [facility] [place] [address] documented in this encounter Visit Diagnoses Not on filedocumented in this encounter Care Teams Radiology Supervisor Relationship Specialty Start Date End Date Rivera Spain MD [address] [place] [id number] PCP - General 02/17/10 documented as of this encounter
[2024-02-08 20:02] LABS: HCT 37.3 % (36.0-46.0); HGB 11.9 g/dL (11.2-15.7); MCH 28.3 pg (27.0-33.0); MCHC 31.9 % (32.0-36.0); MCV 89 fL (80-95); MPV 11.5 fL (8.0-11.0); Platelet Count 251 10^3/uL (130-400); RDW 13.8 % (11.7-14.6); RDW-SD 44.9 fL; WBC 6.56 10^3/uL (4.4-10.8)
[2024-02-08 20:19] LABS: Anion Gap 7.4 mmol/L (3-11); BUN 23 mg/dL (7-18); CO2 29.6 mmol/L (21.0-32.0); CREATININE 0.9 mg/dL (0.55-1.02); Calcium 9.3 mg/dL (8.5-10.1); Chloride 108 mmol/L (98-107); Estimated GFR 61.49 (mL/min/1.73m2); Glucose 105 mg/dL (74-106); Potassium 3.8 mmol/L (3.5-5.1); Sodium 145 mmol/L (136-145)
== END 2024-02-08 17:26 | disposition home or self-care (01) ==
LOC: NCHCN 17:25
PROVIDERS: PCP Internal Medicine; Visit Provider Internal Medicine
DX: I10 Essential (primary) hypertension (principal)
CPT/HCPCS: 80048; 85027

== ENCOUNTER 2024-10-03 14:48 | Outpatient (REF) | payer MEDICARE, SELFPAY ==
[2024-10-03 20:44] LABS: NT-proBNP 397 pg/mL (<300)
[2024-10-04 11:07] LABS: ALT 14 U/L (14-59); AST 22 U/L (15-37); Albumin 3.5 g/dL (3.4-5.0); Alkaline Phosphatase 75 U/L (46-116); Anion Gap 7.8 mmol/L (3-11); BUN 18 mg/dL (7-18); Bilirubin, Total 1.1 mg/dL (0.2-1.0); CO2 29.2 mmol/L (21.0-32.0); Calcium 9.4 mg/dL (8.5-10.1); Chloride 104 mmol/L (98-107); Estimated GFR 70.39 (mL/min/1.73m2); Glucose 85 mg/dL (74-106); Potassium 4.0 mmol/L (3.5-5.1); Sodium 141 mmol/L (136-145); Total Protein 7.4 g/dL (6.4-8.2)
== END 2024-10-03 14:49 | disposition home or self-care (01) ==
LOC: NCHCN 14:48
PROVIDERS: PCP Internal Medicine; Visit Provider Internal Medicine
DX: R60.0 Localized edema (principal)
CPT/HCPCS: 80053; 83880

== ENCOUNTER 2025-03-19 14:51 | Outpatient (REF) | payer MEDICARE, SELFPAY ==
[2025-03-19 18:41] LABS: HCT 33.9 % (36.0-46.0); HGB 10.9 g/dL (11.2-15.7); MCH 27.4 pg (27.0-33.0); MCHC 32.2 % (32.0-36.0); MCV 85 fL (80-95); MPV 11.4 fL (8.0-11.0); Platelet Count 221 10^3/uL (130-400); RBC 3.98 10^6/uL (3.93-5.22); RDW 15.3 % (11.7-14.6); RDW-SD 47.7 fL; WBC 6.22 10^3/uL (4.4-10.8)
[2025-03-19 18:55] LABS: Anion Gap 8.3 mmol/L (3-11); BUN 20 mg/dL (9-23); CO2 28.7 mmol/L (20.0-31.0); Calcium 9.2 mg/dL (8.3-10.6); Chloride 106 mmol/L (98-107); Glucose 86 mg/dL (74-106); Potassium 3.9 mmol/L (3.5-5.1); Sodium 143 mmol/L (136-145)
[2025-03-19 18:57] LABS: TSH (W/Ref FT4) 1.73 uIU/mL (0.55-4.78)
== END 2025-03-19 14:52 | disposition home or self-care (01) ==
LOC: NCHCN 14:51
PROVIDERS: PCP Internal Medicine; Visit Provider Nurse Practitioner Family
DX: R60.0 Localized edema (principal)
CPT/HCPCS: 80048; 85027; 84443